=== PATIENT | female | born 1990 | race Caucasian/White ===

== ENCOUNTER 2016-07-18 16:32 | Emergency (ER) | payer OTHER ==
[~2016-07-18] VITALS: Ht 170.2 cm; Wt 61.2 kg
[2016-07-18 16:48] VITALS: TEMP 37.2; Ht 170.2 cm; Wt 61.2 kg
--- NOTE | 2016-07-18 18:10 | EMERGENCY ROOM VISIT NOTE ---
History First contact with patient: 17:31 Chief Complaint: ED VAG BLEEDING Stated Complaint: 5 WKS , BLEEDING History of Present Illness The patient is a 26 year old female who presents to the Emergency Room with complaints of vaginal bleeding and abdominal cramping. The patient reports that she is approximately 5 to 6 weeks . She had a positive home test. Her last menstrual period was last month. She states that 45 minutes prior to arrival, she noticed some bright red blood in her underwear when she went to the bathroom. She believes that the bleeding has stopped at this time. She had some abdominal cramping but states that this has improved and she feels much better now. This is her fourth . She sees [facility] but has not yet seen him for this . She denies any urinary symptoms, abnormal vaginal discharge, fevers/chills. She denies any history of bleeding disorders. She believes that her blood type is negative and she will need RhoGAM. Review of Systems A complete 10-point Review of Systems was discussed with the patient, with pertinent positives and negatives listed in the History of Present Illness. All remaining Review of Systems questions can be considered negative unless otherwise specified. Social History Smoking Status: Never Smoker Current/Historical Medications No Active Prescriptions or Reported Meds Allergies Coded Allergies: No Known Allergies (Unverified , 07/18/16) Physical Exam Vital Signs Date Time Temp Pulse Resp B/P Pulse Ox O2 Delivery O2 Flow Rate FiO2 07/18/16 19:51 67 20 101/63 100 Room Air 07/18/16 16:48 37.2 82 17 97/66 100 Room Air Physical Exam VITALS: Vitals are noted on the nurse's note and reviewed by myself. Vital signs stable. GENERAL: This is a 26-year-old female, in no acute distress, nondiaphoretic, well-developed well-nourished. HEART: Regular rate and rhythm without murmurs gallops or rubs. LUNGS: Clear to auscultation bilaterally without wheezes, rales or rhonchi. ABDOMEN: Positive bowel sounds x 4. Soft, nontender to palpation. NEURO: Patient was alert and oriented to person place and time. Medical Decision & Procedures ER Provider Diagnostic Interpretation: Limited ultrasound TRANSVAGINAL CLINICAL HISTORY: abd cramping, bleeding, 6 wks bleeding TECHNIQUE: Transabdominal/transvaginal. COMPARISON STUDY: None FINDINGS: Intrauterine gestational sac. The sac is slightly Irregular. Sac is too small for 5 body per versus. Several prominent venous structures adjacent to the ovaries. Right ovary measures 4.0 cm at maximum is 2.7 cm right ovarian cyst. Left ovary measures 3.4 cm. There is a 1.5 cm cyst. IMPRESSION: Intrauterine gestational sac. Slightly irregular. Too Small to confirm or exclude a viable . Follow-up ultrasound is recommended in 1-2 weeks to confirm viability Laboratory Results 07/18/16 18:12 Red Blood Count 4.27, Mean Corpuscular Volume 80.3, Mean Corpuscular Hemoglobin 27.4, Mean Corpuscular Hemoglobin Concent 34.1, Mean Platelet Volume 8.8, Neutrophils (%) (Auto) 54.8, Lymphocytes (%) (Auto) 35.2, Monocytes (%) (Auto) 7.8, Eosinophils (%) (Auto) 1.8, Basophils (%) (Auto) 0.3, Neutrophils # (Auto) 3.73, Lymphocytes # (Auto) 2.40, Monocytes # (Auto) 0.53, Eosinophils # (Auto) 0.12, Basophils # (Auto) 0.02 07/18/16 18:12 Test 07/18/16 17:54 07/18/16 18:12 Urine Color YELLOW Urine Appearance CLEAR (CLEAR) Urine pH 7.0 (4.5-7.5) Urine Specific [place] 1.001 (1.000-1.030) Urine Protein NEG (NEG) Urine Glucose (UA) NEG (NEG) Urine Ketones NEG (NEG) Urine Occult Blood 1+ (NEG) Urine Nitrite NEG (NEG) Urine Bilirubin NEG (NEG) Urine Urobilinogen NEG (NEG) Urine Leukocyte Esterase NEG (NEG) Urine WBC (Auto) 1-5 /hpf (0-5) Urine RBC (Auto) 5-10 /hpf (0-4) Urine Hyaline Casts (Auto) 1-5 /lpf (0-5) Urine Epithelial Cells (Auto) 10-20 /lpf (0-5) Urine Bacteria (Auto) NEG (NEG) White Blood Count 6.81 K/uL (4.8-10.8) Red Blood Count 4.27 M/uL (4.2-5.4) Hemoglobin 11.7 g/dL (12.0-16.0) Hematocrit 34.3 % (37-47) Mean Corpuscular Volume 80.3 fL (80-100) Mean Corpuscular Hemoglobin 27.4 pg (25-34) Mean Corpuscular Hemoglobin Concent 34.1 g/dl (32-36) Platelet Count 263 K/uL (130-400) Mean Platelet Volume 8.8 fL (7.4-10.4) Neutrophils (%) (Auto) 54.8 % Lymphocytes (%) (Auto) 35.2 % Monocytes (%) (Auto) 7.8 % Eosinophils (%) (Auto) 1.8 % Basophils (%) (Auto) 0.3 % Neutrophils # (Auto) 3.73 K/uL (1.4-6.5) Lymphocytes # (Auto) 2.40 K/uL (1.2-3.4) Monocytes # (Auto) 0.53 K/uL (0.11-0.59) Eosinophils # (Auto) 0.12 K/uL (0-0.5) Basophils # (Auto) 0.02 K/uL (0-0.2) RDW Standard Deviation 42.7 fL (36.4-46.3) RDW Coefficient of Variation 14.6 % (11.5-14.5) Immature Granulocyte % (Auto) 0.1 % Immature Granulocyte # (Auto) 0.01 K/uL (0.00-0.02) Anion Gap 12.0 mmol/L (3-11) Est Creatinine Clear Calc Drug Dose 140.8 ml/min Estimated GFR () 147.6 Estimated GFR (Non- 127.4 BUN/Creatinine Ratio 19.0 (10-20) Calcium Level 8.6 mg/dl (8.5-10.1) Total Bilirubin 0.4 mg/dl (0.2-1) Aspartate Amino Transf (AST/SGOT) 20 U/L (15-37) Alanine Aminotransferase (ALT/SGPT) 23 U/L (12-78) Alkaline Phosphatase 61 U/L (45-117) Total Protein 7.1 gm/dl (6.4-8.2) Albumin 3.7 gm/dl (3.4-5.0) Globulin 3.4 gm/dl (2.5-4.0) Albumin/Globulin Ratio 1.1 (0.9-2) Human Chorionic Gonadotropin, Quant 4017 mIU/mL Medical Decision Differential diagnosis includes first trimester bleeding, spontaneous , threatened , placenta previa, placental abruption, among others. The patient was evaluated as above. Labs were drawn and IV access was obtained. Imaging studies were performed and read by radiology as above. The patient was reassessed multiple times during their stay in the emergency department and remained in stable condition. The patient is a 26-year-old female who presents today complaining of vaginal bleeding during her first trimester. The patient's symptoms had resolved at the time of her examination. Labs revealed no leukocytosis, anemia or concerning electrolyte abnormalities. Quantitative beta hCG was found to be 4017. Urinalysis was not suggestive of infection. Pelvic ultrasound was performed and showed a gestational sac which was slightly irregular in appearance. As the patient is so early in her , this could represent an early intrauterine or an early miscarriage. The patient was informed of the findings. As she is blood type Rh-, she was given RhoGAM. She was instructed to follow-up with her [facility] this coming week for further evaluation and follow-up testing and return to the emergency department for any worsening symptoms. Based on the patient's presentation, lab results, and imaging studies, I feel the patient is stable for outpatient treatment. The patient's case was reviewed with Dr. Murray, ED attending physician, who agreed with my assessment and treatment plan. Discharge instructions were reviewed with the patient. The patient verbalized understanding of my assessment and treatment plan and was discharged home in good condition. Impression Primary Impression: Vaginal bleeding in Departure Information Dispostion Home / Self-Care Condition GOOD Prescriptions No Active Prescriptions or Reported Meds Referrals No Doctor, Assigned (PCP) Patient Instructions My [facility] Additional Instructions Follow-up closely with [facility]. Call them Thursday morning for appointment. You will need follow-up ultrasound and possibly follow-up blood tests to check your beta hCG. Pelvic rest: Nothing in the vagina until cleared by [facility]. Rest this weekend. Stay hydrated with plenty of fluids. Return to the emergency department with worsening pain, worsening bleeding or any other new/concerning symptoms. Problem Qualifiers Primary Impression: Vaginal bleeding in Trimester: first trimester Qualified Codes: O46.91 - Antepartum hemorrhage, unspecified, first trimester
[2016-07-18 18:20] LABS: BASO % 0.3 %; BASO ABS # 0.02 K/uL (0-0.2); COMPLETE YES; EOS % 1.8 %; HEMATOCRIT 34.3 % (37-47); IG% 0.1 %; LYMPH % 35.2 %; MEAN CELL VOLUME 80.3 fL (80-100); MEAN CORPUSCULAR HEMOGLOBIN 27.4 pg (25-34); MEAN CORPUSCULAR HGB CONC 34.1 g/dl (32-36); MEAN PLATELET VOLUME 8.8 fL (7.4-10.4); MONO % 7.8 %; NEUT % 54.8 %; PLATELET COUNT 263 K/uL (130-400); RED BLOOD COUNT 4.27 M/uL (4.2-5.4); WHITE BLOOD COUNT 6.81 K/uL (4.8-10.8)
[2016-07-18 18:22] LABS: URINE APPEARANCE CLEAR (CLEAR); URINE BILIRUBIN NEG (NEG); URINE COLOR YELLOW; URINE NITRITE NEG (NEG); URINE SPECIFIC GRAVITY 1.001 (1.000-1.030); UROBILINOGEN NEG (NEG); ZZUR CULT IF INDIC CLEAN CATCH NO
[2016-07-18 18:24] LABS: MANUAL MICROSCOPIC REQUIRED? NO; REVIEW REQ? NO
[2016-07-18 18:49] LABS: CALCIUM 8.6 mg/dl (8.5-10.1); CREATININE 0.59 mg/dl (0.60-1.20); POTASSIUM 3.7 mmol/L (3.5-5.1)
[2016-07-18 18:52] LABS: ALB/GLOB RATIO 1.1 (0.9-2)
--- NOTE | 2016-07-18 19:36 | DIAGNOSTIC IMAGING REPORT ---
Limited ultrasound TRANSVAGINAL CLINICAL HISTORY: abd cramping, bleeding, 6 wks bleeding TECHNIQUE: Transabdominal/transvaginal. COMPARISON STUDY: None FINDINGS: Intrauterine gestational sac. The sac is slightly Irregular. Sac is too small for 5 body per versus. Several prominent venous structures adjacent to the ovaries. Right ovary measures 4.0 cm at maximum is 2.7 cm right ovarian cyst. Left ovary measures 3.4 cm. There is a 1.5 cm cyst. IMPRESSION: Intrauterine gestational sac. Slightly irregular. Too Small to confirm or exclude a viable . Follow-up ultrasound is recommended in 1-2 weeks to confirm viability Electronically signed by: Juan Cabezas M.D. 07/18/2016 7:34 PM Dictated Date/Time: 07/18/2016 7:31 PM
[2016-07-18 19:51] VITALS: BP 101/63; PULSE 67; O2SAT 100
== END 2016-07-18 19:55 | disposition home or self-care (01) ==
LOC: C.EDB 16:33 → C.EDA 19:55
DX: O46.91 Antepartum hemorrhage, unspecified, first trimester (principal); Z3A.01 Less than 8 weeks gestation of pregnancy